=== PATIENT | female | born 1970 | race African-American/Black ===

== ENCOUNTER 2018-12-07 18:59 | Emergency (ER) | payer MEDICAID ==
[~2018-12-07] VITALS: Ht 149.9 cm; Wt 44.5 kg
[2018-12-07 19:05] VITALS: Ht 149.9 cm; Wt 44.5 kg
[2018-12-07] MEDS ORDERED: PREDNISONE5 MG PO (19:07)
[2018-12-07] MEDS ORDERED: FOLIC ACID1 MG PO (19:07)
[2018-12-07] MEDS ORDERED: OMEPRAZOLE40 MG PO (19:08)
[2018-12-07] MEDS ORDERED: ZOFRAN4 MG PO (19:08)
[2018-12-07] MEDS ORDERED: LIPITOR20 MG PO (19:08)
[2018-12-07] MEDS ORDERED: FERRAPLUS 90 T1 EACH PO (19:09)
[2018-12-07 19:26] LABS: HEMATOCRIT 39.2 % (36.0-48.0); HEMOGLOBIN 12.7 g/dL (12-16); MCH 28.8 pg (26.0-34.0); MCHC 32.4 g/dL (31.0-37.0); MCV 88.9 fL (80.0-100.0); MEAN PLATELET VOLUME 9.2 fL (7.4-10.4); PLATELET COUNT 260 10x3/uL (130-400); RBC 4.41 10x6/uL (4.00-5.40); RDW 14.3 % (11.5-14.5); WBC 4.6 10x3/uL (4.8-10.8)
[2018-12-07 19:49] LABS: EOSINOPHILS 6 % (0-7); LYMPHOCYTES 42 % (15-50); MONOCYTES 15 % (2-11); NEUTROPHILS 37 % (40-80); TARGET CELLS OCC
[2018-12-07 19:50] LABS: ALBUMIN 3.8 g/dL (3.4-5.0); ALKALINE PHOSPHATASE 100 U/L (46-116); ALT (SGPT) 23 U/L (10-68); AMYLASE - SERUM 115 U/L (25-115); CALC OSMOLALITY 276 mosm/kg (275-300); CALCIUM 9.1 mg/dL (8.5-10.1); CARBON DIOXIDE 29.1 mmol/L (21.0-32.0); CHLORIDE - SERUM 103 mmol/L (98-107); GLUCOSE 78 mg/dL (74-106); LIPASE 175 U/L (73-393); PLATELET ESTIMATE NORMAL; POTASSIUM - SERUM 3.7 mmol/L (3.5-5.1); PROTEIN - SERUM 7.9 g/dL (6.4-8.2); SODIUM 140 mmol/L (136-145); TROPONIN-I < 0.017 ng/mL (0.000-0.060); UREA NITROGEN 10 mg/dL (7-18); eGFR NON AFRICAN AMERICAN 63 mL/min (90-120)
[2018-12-07 19:57] LABS: APPEARANCE CLEAR (CLEAR); BILIRUBIN NEGATIVE (NEGATIVE); COLOR STRAW (YELLOW); GLUCOSE NEGATIVE (NEGATIVE); KETONE NEGATIVE (NEGATIVE); NITRITE NEGATIVE (NEGATIVE); PROTEIN NEGATIVE (NEGATIVE); SPECIFIC GRAVITY 1.005 (1.005-1.020); UROBILINOGEN NORMAL (NORMAL)
[2018-12-07 20:13] LABS: HCG SERUM NEGATIVE (NEGATIVE)
[2018-12-07] MEDS ORDERED: ULTRAM50 MG PO (22:44)
[2018-12-07 23:30] VITALS: BP 125/80
== END 2018-12-07 23:30 | disposition home or self-care (01) ==
LOC: D.ER 18:59
PROVIDERS: Family Medicine
DX: N83.00 Follicular cyst of ovary, unspecified side (principal)